=== PATIENT | male | born 1985 | race Hispanic/Latino ===

== ENCOUNTER 2022-06-02 17:51 | Observation (INO) | payer OTHER, SELFPAY ==
--- NOTE | ~2022-06-02 | CT_ITS ---
EXAMINATION: CT abdomen pelvis w con DATE: 06/02/2022 19:42 INDICATION: Right lower quadrant abdominal pain. TECHNIQUE: Computed tomography (CT) of the abdomen and pelvis was performed with 100 mL Omnipaque-350 intravenous contrast. Automated exposure control and iterative reconstruction technique were employe d. The dose-length product was 388.30 mGy-cm. COMPARISON: None FINDINGS: Lung bases are clear. Heart size is normal. No pericardial or pleural effusion. Focal hepatic steatos is along the ligamentum teres. Gallbladder, spleen, pancreas, bilateral adrenal glands and kidneys ar e normal. There is inflammatory stranding surrounding the dilated fluid-filled appendix which measure s up to 11 mm diameter which is consistent with acute appendicitis. No abscess or free intraperitonea l gas or fluid. Bowels are otherwise unremarkable. Bladder is normal. No pathologically enlarged abdo myrna or pelvic lymphadenopathy. 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 IMPRESSION: 1. Acute appendicitis. Reviewed, dictated and finalized at location A. E WELL OPERATOR IMPRESSION: 1. Acute appendicitis.
[2022-06-02 17:55] VITALS: BP 137/97; PULSE 89; RESP 18; TEMP 36.9; O2SAT 100
[2022-06-02 19:16] LABS: Basophils Absolute Auto 0.1 K/mm3 (0.0-0.1); Basophils Percent Auto 0.4 % (0.2-1.2); Hematocrit 44.9 % (42.0-52.0); Hemoglobin 15.4 g/dL (14.0-18.0); Immature Granulocyte Absolute 0.06 K/mm3 (0.00-0.031); Immature Granulocyte Percent A 0.5 % (0-0.5); Lymphocytes Absolute Auto 0.61 K/mm3 (0.9-3.2); Lymphocytes Percent Auto 4.6 % (18.3-44.2); Mean Corpuscular HGB Conc 34.3 g/dl (32-36); Mean Corpuscular Volume 84.6 fl (80-100); Mean Platelet Volume 11.3 fl (7.4-10.4); Monocytes Absolute Auto 0.5 K/mm3 (0.1-0.6); Monocytes Percent Auto 3.5 % (2.6-8.5); Neutrophils Absolute Auto 12.1 K/mm3 (1.3-6.7); Platelet Count Result 244 k/mm3 (150-375); Red Blood Count 5.31 M/mm3 (4.6-6.20); Red Cell Distribution Width 13.2 % (11.5-14.5); White Blood Count 13.3 K/mm3 (4.5-10.0)
[2022-06-02 19:17] LABS: Appearance Urine Clear (Clear); Bilirubin Urine Negative (Negative); Blood Urine Negative (Negative); Color Urine Yellow (Yellow); Glucose Urine UA Negative (Negative); Ketones Urine 3+ mg/dL (Negative); Leukocyte Esterase Ur Negative LEU/UL (Negative); Nitrate Urine Negative (Negative); Protein Urine 1+ mg/dL (Negative); Specific Grav Ur 1.015 (1.001-1.035); pH Urine >=9.0 (5.0-9.0)
[2022-06-02 19:22] LABS: Mucus Urine Rare /lpf; WBC Urine 0-3 /hpf
[2022-06-02 19:26] LABS: Anion Gap 10 mmol/L (8-16); Blood Urea Nitrogen 14 mg/dL (9-20); Carbon Dioxide 27 mmol/L (22-30); Chloride 99 mmol/L (98-107); Estimated Glomerular Filt Rate > 60; Glucose 140 mg/dL (65-110); Potassium 3.6 mmol/L (3.4-5.0); Sodium 136 mmol/L (137-145)
[2022-06-02 19:27] LABS: Alanine Aminotransferase 37 U/L (6-50); Albumin Level 5.2 g/dL (3.5-5.1); Alkaline Phosphatase 114 U/L (38-126); Aspartate Amino Transferase 40 U/L (17-59); Bilirubin,Total 0.9 mg/dL (0.2-1.3); Calcium 9.6 mg/dL (8.4-10.2); Lipase 458 U/L (23-300)
[2022-06-02 19:34] LABS: Add Urine Microscopic? YES
[2022-06-02 19:40] VITALS: BP 139/79; PULSE 90; RESP 18; TEMP 36.6; O2SAT 99
--- NOTE | 2022-06-02 19:40 | PC.NURSE ---
First encounter w/ pt. Pt resting comfortably in bed, NAD, updated pt on plan of care. No question at this time. Pt going to CT now.
[2022-06-02] MEDS: SODIUM CHLORIDE 0.9% IV 1,000 ML 999 ML IV CONT (19:47)
[2022-06-02] MEDS: ONDANSETRON INJ 4 MG/2 ML VIAL IV PUSH (19:47)
[2022-06-02] MEDS: KETOROLAC 30 MG/ML VIAL (*BKC) IV PUSH (19:47)
--- NOTE | 2022-06-02 19:48 | ED.ABDPAIN ---
HPI - Abdominal Pain General Chief Complaint: Abdominal Pain Stated Complaint: abdominal pain Time Seen by Provider: 06/02/22 18:25 Source: RN notes reviewed History of Present Illness HPI narrative: Patient presents emergency department from home for abdominal pain. Patient states that pain began this morning is located right lower quadrant. States the pain is described as sharp and stabbing and does not radiate. The pain is worse with movement. Associate with nausea and vomiting. He denies any fevers or diarrhea. States he has not taken anything for the pain. Patient does not speak Prydeinig and iPad director trade was used Related Data Home Medications Medication Instructions Recorded Confirmed No Home Medications 06/02/22 06/02/22 Allergies Allergy/AdvReac Type Severity Reaction Status Date / Time No Known Allergies Allergy Verified 06/02/22 18:52 Review of Systems Review of Systems: Gen.: Denies fevers or chills ENT: Denies congestion Respiratory: Denies shortness of breath or cough CV: Denies chest pain or palpitations GI: See HPI Musculoskeletal: Denies back pain or muscle pain Neuro: Denies numbness, tingling, weakness or focal weakness Skin: Denies rash Except as documented, all other systems reviewed and negative [facility] Past Medical History Medical History (Updated 06/02/22 @ 20:01 by Nando Wade DO) No significant past medical history Social History Social History (Updated 06/02/22 @ 19:49 by Nando Wade DO) Smoking status: Never smoker Exam Narrative: APPEARANCE: No acute distress, nontoxic, resting in bed HEENT: Normocephalic, atraumatic, RESPIRATORY: No respiratory distress, clear to auscultation bilaterally with no rhonchi wheezing or rales CARDIOVASCULAR: RRR s murmur ABDOMINAL: Soft nondistended tender to palpation in the right lower quadrant no tenderness in the right upper quadrant, left upper quadrant left lower quadrant no rebound or guarding MUSCULOSKELETAl: Moves all extremities. No clubbing, cyanosis or edema. NEURO: Awake and alert. Following commands, speech normal, no focal deficits SKIN:: Warm, dry. Normal Color PSYCHIATRIC: Normal affect/mood Course Course Emergency Course: Called and discussed with Dr. Brady for general surgery agrees with admission to his service was Zosyn started and plan for OR in a.m. Discussed with patient and family results of workup and diagnosis. Discussed need for admission. Patient and family understand and agree to current treatment plan Vital Signs Vital signs: Vital Signs Temperature 98.4 F 06/02/22 17:55 Pulse Rate 89 06/02/22 17:55 Respiratory Rate 18 06/02/22 17:55 Blood Pressure 137/97 H 06/02/22 17:55 Pulse Oximetry 100 06/02/22 17:55 Oxygen Delivery Room Air 06/02/22 17:55 Temperature 98 F 06/02/22 19:40 Pulse Rate 90 06/02/22 19:40 Respiratory Rate 18 06/02/22 19:40 Blood Pressure 139/79 06/02/22 19:40 Pulse Oximetry 99 06/02/22 19:40 Oxygen Delivery Room Air 06/02/22 17:55 MDM - Abdominal Pain Differential Diagnosis Differential diagnosis: Likely acute appendicitis, calculus of kidney, constipation, diverticulitis, gastroenteritis and pancreatitis Lab Data 06/02/22 19:04 06/02/22 19:04 Labs: Lab Results 06/02/22 06/02/22 06/02/22 Range/Units 19:04 19:04 19:05 WBC 13.3 H (4.5-10.0) K/mm3 RBC 5.31 (4.6-6.20) M/mm3 Hgb 15.4 (14.0-18.0) g/dL Hct 44.9 (42.0-52.0) % MCV 84.6 (80-100) fl MCH 29.0 (26-34) pg MCHC 34.3 (32-36) g/dl RDW 13.2 (11.5-14.5) % Plt Count 244 (150-375) k/mm3 MPV 11.3 H (7.4-10.4) fl Immature Gran % (Auto) 0.5 (0-0.5) % Neut % (Auto) 91.0 H (45.5-73.1) % Lymph % (Auto) 4.6 L (18.3-44.2) % [place] % (Auto) 3.5 (2.6-8.5) % Eos % (Auto) 0.0 (0-4.4) % Baso % (Auto) 0.4 (0.2-1.2) % Lymph # (Auto) 0.61 L (0.9-3.2) K/mm3 [place]
[2022-06-02 20:54] LABS: Influenza A QL RT-PCR Negative (Negative); Influenza B QL RT-PCR Negative (Negative); SARS-CoV-2 RNA PCR Negative
[2022-06-02 21:21] VITALS: BP 141/69; PULSE 77; RESP 18; TEMP 36.6; O2SAT 99
[2022-06-02 22:55] VITALS: BP 131/79; PULSE 80; RESP 18; TEMP 37.2; O2SAT 99
[2022-06-02 23:01] VITALS: BP 131/79; PULSE 80; TEMP 37.2
[2022-06-02 23:34] VITALS: BP 136/76; PULSE 90; RESP 20; TEMP 37.3; O2SAT 100
--- NOTE | 2022-06-02 23:45 | ADMGEN ---
This patient, Juan C Roger, was admitted to 2 Medical Room 240-. Patient/family oriented to hospital policies and general routines including ID bracelet, bed and alarms, visiting hours, pain management, procedures, bathroom and other care routines, personal items, smoking policy, room service/diet, and visiting hours. Information on how to activate the Rapid Response Team has been discussed. Patient/Family are encouraged to report perceived risks to care and to ask questions if they do not understand what they are told or what they should do.
[2022-06-03] VITALS (13 sets, daily range): BP systolic 110–149; BP diastolic 69–91; PULSE 76–95; RESP 14–25; TEMP 36.4–36.9; O2SAT 91–100
[2022-06-03] MEDS: SODIUM CHLORIDE 0.9% IV 1,000 ML 125 ML IV CONT (01:43)
[2022-06-03] MEDS: MORPHINE SULFATE (*CRX) 4 MG/ML INJ IV PUSH (01:44)
[2022-06-03 05:40] LABS: Alanine Aminotransferase 30 U/L (6-50); Albumin Level 4.4 g/dL (3.5-5.1); Alkaline Phosphatase 79 U/L (38-126); Anion Gap 7 mmol/L (8-16); Aspartate Amino Transferase 32 U/L (17-59); Basophils Percent Auto 0.3 % (0.2-1.2); Blood Urea Nitrogen 13 mg/dL (9-20); Calcium 8.5 mg/dL (8.4-10.2); Carbon Dioxide 27 mmol/L (22-30); Chloride 101 mmol/L (98-107); Eosinophils Absolute Auto 0.1 K/mm3 (0-0.3); Eosinophils Percent Auto 0.4 % (0-4.4); Estimated CRCL calculation 83 ml/min; Estimated Glomerular Filt Rate > 60; Glucose 93 mg/dL (65-110); Hematocrit 41.4 % (42.0-52.0); Hemoglobin 13.7 g/dL (14.0-18.0); Immature Granulocyte Absolute 0.05 K/mm3 (0.00-0.031); Immature Granulocyte Percent A 0.4 % (0-0.5); Lymphocytes Absolute Auto 2.32 K/mm3 (0.9-3.2); Lymphocytes Percent Auto 19.1 % (18.3-44.2); Mean Corpuscular HGB Conc 33.1 g/dl (32-36); Mean Corpuscular Hemoglobin 29.1 pg (26-34); Mean Corpuscular Volume 87.9 fl (80-100); Mean Platelet Volume 11.6 fl (7.4-10.4); Monocytes Percent Auto 7.9 % (2.6-8.5); Neutrophils Absolute Auto 8.7 K/mm3 (1.3-6.7); Neutrophils Percent Auto 71.9 % (45.5-73.1); Platelet Count Result 205 k/mm3 (150-375); Potassium 3.6 mmol/L (3.4-5.0); Red Blood Count 4.71 M/mm3 (4.6-6.20); Red Cell Distribution Width 13.5 % (11.5-14.5); Sodium 135 mmol/L (137-145); White Blood Count 12.1 K/mm3 (4.5-10.0)
--- NOTE | 2022-06-03 09:55 | PM.IMHP ---
H&P: HPI History of Present Illness Date/Time: 06/03/22 09:55 Chief Complaint: acute appendicitis Narrative: Pt is a 36 y/o M presenting to ED c/o RLQ pain since yesterday am. Pt reports pain started acutely and is constant, sharp. Pt reports pain is localized to RLQ. Pt reports associated anorexia, nausea. Pt denies previous episodes, denies f/c. Review of Systems Constitutional: Constitutional: Reports as per HPI, Reports anorexia, Denies chills, Denies fatigue, Denies fever(s), Denies lethargy, Reports poor appetite, Denies weakness, Denies weight gain and Denies weight loss Eyes: Eyes: Reports no additional eye complaints ENT: Reports system reviewed and no additional complaints, except as documented Cardiovascular: Cardiovascular: Reports no additional cardiovascular complaints Respiratory: Respiratory: Reports no additional respiratory complaints Gastrointestinal: Gastrointestinal: Reports as per HPI, Reports abdominal pain, Denies bloating, Reports GI cramping, Denies diarrhea, Denies loose stools, Reports nausea and Denies vomiting Genitourinary: Genitourinary: Reports no additional male genitourinary complaints Musculoskeletal: Musculoskeletal: Reports no additional musculoskeletal complaints Integumentary/Breasts: Skin/Breast: Reports system reviewed and no additional complaints, except as docu Psychiatric: Psychiatric: Reports no additional psychiatric complaints Endocrine: Endocrine: Reports no additional endocrine complaints Hematologic/Lymphatic: Hematologic/Lymphatic: Reports no additional hematologic/lymphatic complaints Allergic/Immunologic: Allergic/Immunologic: Reports no additional allergic/immunologic complaints PMFSH Past Medical History Medical History No significant past medical history Social History Social History Smoking status: Never smoker Alcohol intake: current Drinks per week: 1 Substance use: never Lack of Transportation: No Lack of Food: Never True Current Housing: I Have Housing Concerned About Future Housing: No Difficulty Paying Gas/Electric Bills: No Difficulty Paying for Meds: YES Currently Unemployed: YES Education: Grade School Difficulty w/ Childcare or Family Care: No Spiritual care concerns: No Comments no past surgical history FH - no CRC, IBD Meds Home Medications and Allergies Home Medications Medication Instructions Recorded Confirmed Type No Home Medications 06/02/22 06/02/22 History Allergies Allergy/AdvReac Type Severity Reaction Status Date / Time No Known Allergies Allergy Verified 06/02/22 18:52 Vital Signs Vital Signs - 24 hr 06/02/22 17:55 06/02/22 19:40 06/02/22 21:21 Temperature 36.9 C 36.6 C 36.6 C Pulse Rate 89 90 77 Respiratory Rate 18 18 18 Blood Pressure 137/97 H 139/79 141/69 H Pulse Oximetry 100 99 99 Oxygen Delivery Room Air 06/02/22 22:55 06/02/22 23:34 06/03/22 04:10 Temperature 37.2 C 37.3 C 36.9 C Pulse Rate 80 90 80 Respiratory Rate 18 20 20 Blood Pressure 131/79 136/76 110/69 Pulse Oximetry 99 100 100 Oxygen Delivery 06/03/22 08:00 06/02/22 23:01 Temperature 37.2 C Pulse Rate 80 Respiratory Rate Blood Pressure 131/79 Pulse Oximetry Oxygen Delivery Room Air Exam Const: General: cooperative, healthy appearing, comfortable, alert, awake, Physically active and acute distress mild Nutritional Appearance: average body habitus Orientation/consciousness: patient oriented x3 HENMT: Head: normal to inspection, No palpable skull fracture present, normocephalic and atraumatic Eyes: General: appearance normal, both eyes and all related structures Neck: Neck: normal visual inspection, full ROM and no lymphadenopathy Resp: Auscultation: clear to auscultation bilaterally Cardio: Rate: regular rate Rhythm: regular rhythm GI: Inspection: nor
--- NOTE | 2022-06-03 10:01 | WPDHPUPDATE1 ---
History and Physical Update Update Date/Time: 06/03/22 10:01 History and Physical has been reviewed, including an updated exam of the patient. There are NO changes in the patient's condition. Risks, benefits, and alternatives have been discussed and questions answered. Patient agrees to proceed with procedure.
--- NOTE | 2022-06-03 10:06 | WPDANESEPPF ---
Anes - Initial Pre Proc Eval Procedure: Operation Date: 06/03/22 11:30 Proposed Procedures p Laparoscopic Appendectomy - Lubna Brady MD Date/Time: 06/03/22 10:06 Surgeon: Lubna Brady MD Pre Op Diagnosis: Appendicitis Patient Data Age: 36 Gender: M Height: 1.63 m Weight: 75.4 kg Last Vital Signs Temp 36.9 C 06/03/22 04:10 Pulse 80 06/03/22 04:10 Resp 20 06/03/22 04:10 BP 110/69 06/03/22 04:10 Pulse Ox 100 06/03/22 04:10 O2 Del Method Room Air 06/03/22 08:00 Allergies Allergy/AdvReac Type Severity Reaction Status Date / Time No Known Allergies Allergy Verified 06/02/22 18:52 Home Medications Medication Instructions Recorded Confirmed Type No Home Medications 06/02/22 06/02/22 History Laboratory Tests 06/02/22 06/02/22 06/02/22 19:04 19:04 19:05 WBC 13.3 K/mm3 H K/mm3 (4.5-10.0) RBC 5.31 M/mm3 M/mm3 (4.6-6.20) Hgb 15.4 g/dL g/dL (14.0-18.0) Hct 44.9 % % (42.0-52.0) MCV 84.6 fl fl (80-100) MCH 29.0 pg pg (26-34) MCHC 34.3 g/dl g/dl (32-36) RDW 13.2 % % (11.5-14.5) Plt Count 244 k/mm3 k/mm3 (150-375) MPV 11.3 fl H fl (7.4-10.4) Immature Gran % (Auto) 0.5 % % (0-0.5) Neut % (Auto) 91.0 % H % (45.5-73.1) Lymph % (Auto) 4.6 % L % (18.3-44.2) [place] % (Auto) 3.5 % % (2.6-8.5) Eos % (Auto) 0.0 % % (0-4.4) Baso % (Auto) 0.4 % % (0.2-1.2) Lymph # (Auto) 0.61 K/mm3 L K/mm3 (0.9-3.2) [place] # (Auto) 0.5 K/mm3 K/mm3 (0.1-0.6) Eos # (Auto) 0.0 K/mm3 K/mm3 (0-0.3) Baso # (Auto) 0.1 K/mm3 K/mm3 (0.0-0.1) Abs Immat Gran (auto) 0.06 K/mm3 H K/mm3 (0.00-0.031) Absolute Neuts (auto) 12.1 K/mm3 H K/mm3 (1.3-6.7) Absolute Nucleated RBC 0.0 K/mm3 K/mm3 (0.0-0.012) Nucleated RBC % 0.0 % % (0.0-0.2) Sodium 136 mmol/L L mmol/L (137-145) Potassium 3.6 mmol/L mmol/L (3.4-5.0) Chloride 99 mmol/L mmol/L (98-107) Carbon Dioxide 27 mmol/L mmol/L (22-30) Anion Gap 10 mmol/L mmol/L (8-16) BUN 14 mg/dL mg/dL (9-20) Creatinine 0.70 mg/dL mg/dL (0.7-1.3) Estim Creat Clear Calc Not Reportable Estimated GFR > 60 (59 - ) Glucose 140 mg/dL H mg/dL (65-110) Calcium 9.6 mg/dL mg/dL (8.4-10.2) Total Bilirubin 0.9 mg/dL mg/dL (0.2-1.3) AST 40 U/L U/L (17-59) ALT 37 U/L U/L (6-50) Alkaline Phosphatase 114 U/L U/L (38-126) Total Protein 9.0 g/dL H g/dL (6.3-8.2) Albumin 5.2 g/dL H g/dL (3.5-5.1) Lipase 458 U/L H U/L (23-300) Urine Color Yellow (Yellow) Urine Appearance Clear (Clear) Urine pH >=9.0 H (5.0-9.0) Ur Specific [place] 1.015 (1.001-1.035) Urine Protein 1+ mg/dL H mg/dL (Negative) Urine Glucose (UA) Negative mg/dL mg/dL (Negative) Urine Ketones 3+ mg/dL H mg/dL (Negative) Ur Blood (Man) Negative (Negative) Urine Nitrate Negative (Negative) Urine Bilirubin Negative (Negative) Urine Urobilinogen 1.0 mg/dL mg/dL (<2.0) Leukocyte Esterase Rfl Negative FATMATA/UL FATMATA/UL (Negative) Urine RBC 3-5 /hpf H /hpf (0-2) Urine WBC 0-3 /hpf /hpf Urine Mucus Rare /lpf /lpf Influenza A (RT-PCR) Influenza B (RT-PCR) SARS-CoV-2 RNA (RT-PCR) 06/02/22 06/03/22 06/03/22 20:12 04:43 04:43 WBC 12.1 K/mm3 H K/mm3 (4.5-10.0) RBC 4.71 M/mm3 M/mm3 (4.6-6.20) Hgb 13.7 g/dL L g/dL (14.0-18.0) Hct 41.4 % L % (42.0-52.0) MCV 87.9 fl fl (80-100) MCH 29.1
[2022-06-03] MEDS: LACTATED RINGERS 1,000 ML 30 ML IV CONT ×2 (10:20→12:49)
--- NOTE | 2022-06-03 10:53 | SUR.PREOP ---
1030-DR. MTASON AND OR [employer] WAITING TO TAKE PT TO OR ON ARRIVAL TO PREOP. [place]OV[place] SPEAKING STRAT[employer] PASTING INSPECTOR CONNECTED AND PT AND DISCUSSION WITH DR. MATSON COMPLETED PER SERVICE. DR. MATSON REQUESTS HAIR REMOVAL BE DEFERRED TO OR AND [employer] IN AGREEMENT.
[2022-06-03] MEDS: BUPIVACAINE/EPINEPHRINE 0.5% 30 ML VIAL INFILTRATE (10:54)
--- NOTE | 2022-06-03 11:20 | P.OP_ITS ---
Procedure Note - Detailed Date of Procedure 06/03/22 Pre-op Diagnosis acute appendicitis Post-op Diagnosis Same Procedure Performed laparoscopic appendectomy Surgeon Lubna Brady MD Anesthesia General Indications 36 y/o M presenting to ED c acute appendicitis Findings acute appendicitis no evidence of perforation Description of Procedure The patient was taken to the operating room and placed in the supine position. After adequate induction of general anesthesia, the patient was prepped and draped in the normal sterile fashion. A time-out was then done to verify the patient's identity, as well as the procedure being performed. I began by making a 5 mm incision in the infraumbilical region, through this a Veress needle was placed in the peritoneal cavity. CO2 gas was then insufflated and after debra quate pneumoperitoneum was achieved the Veress needle was removed. Then placed a 5 mm Optiview trocar under direct visualization into the peritoneal cavity. I then insufflated through this trocar site and the endoscope was placed into the trocar. Under direct visualization, placed 2 further 5 mm suprapubic port as well as an additional 12 mm port in the left lower abdomen. At this point I identified the cecum and retracted the cecum both medially and superiorly allowing me to expose the appendix. The appendix was noted to be very dilated and inflamed especially towards the tip. The appendix was noted to be very adherent to the right lateral sidewall as well as the ileum. I was able to bluntly dissect the appendix from these adhesions. I then was able to locate the base of the appendix with the cecum. I created a window with the [place] dissector between the appendix itself and the mesoappendix. I then transected the mesoappendix with a white vascular staple load. The Endo-ERUM was then reloaded with a blue staple load and I transected the base of the appendix. Once the specimen was completely detached, an endo-pouch was placed into the 12 mm port site and the specimen was removed through the endo-pouch. The appendiceal specimen will be sent to pathology for further review. I then copiously irrigated the right lower quadrant. Hemostasis was noted at both staple lines no other pathology was seen in this area. I then moved the camera to the suprapubic port to check our its port of entry. No iatrogenic injury or other pathology was noted in the upper abdomen. I then closed the 12 mm port site with a Richardson code and 0 Vicryl suture under direct visualization. At this point, the abdomen was desufflated and all ports were removed. All port sites were closed with 4 Monocryl subcuticular suture. Dermabond was placed on all wounds. The patient tolerated the procedure well and was extubated in the operating room postop. He will be sent to the recovery room in stable condition. Estimated Blood Loss 10 Drains No Packing No Pathology Yes Complications No immediate complications Condition Stable Disposition PACU [facility] Billing Surgery - Charge Forward: Surgery Billing
[2022-06-03] MEDS: fentaNYL CITRATE INJ (*CRX) 100 MCG/2 ML VIAL 25 MCG IV PUSH ×4 (11:36→12:05)
[2022-06-03] MEDS: HYDROcodone/acetaminophen (*CRX) 5-325 MG TABLET 1 TAB PO (13:28)
--- NOTE | 2022-06-06 14:32 | PM.DS ---
DS: Admitting Diagnosis Discharge Date 06/03/22 Admitting Diagnosis Acute appendicitis DS: Discharge Diagnosis Discharge Diagnosis (1) Acute appendicitis: Code(s): K35.80 - Unspecified acute appendicitis Status: Acute Assessment and Plan: status post laparoscopic appendectomy, doing well, continue routine postoperative care, home with p.o. analgesia Colace, follow-up 2 weeks DS: Summary Hospital Course Reason for hospitalization: Acute appendicitis Hospital Course: The the patient is a 36-year-old male presenting to the emergency department complaining of lower abdominal pain. Workup in the emergency department, including CT scan, was significant for acute appendicitis. The patient was subsequently admitted to the surgical service and started on antibiotics. Upon surgical evaluation, was decided the patient need emergent appendectomy. Patient was taken to the operating room and laparoscopic appendectomy was performed, please see full operative report for details of procedure. Postoperatively the patient did well was transferred to surgical floor. He was able to tolerate a diet and was up and ambulating without issue. His pain was well controlled with p.o. analgesia. He will now be discharged home with p.o. analgesia and Colace. He will follow up with me in 2 weeks. Status at Discharge Functional status at discharge: independent ambulation Overall status at discharge: patient is progressing back to baseline Time Spent with Patient Time attestation: Total time spent providing and/or coordinating discharge services: Time spent: Less than 30 minutes Exam Const: General: cooperative, comfortable and no acute distress Resp: Auscultation: clear to auscultation bilaterally Cardio: Rate: regular rate Rhythm: regular rhythm GI: Inspection: normal to inspection, distended and incision GI Palp: Yes abdominal tenderness, Yes Soft to palpation, Yes Tenderness to palpation present (GI), No Guarding due to palpation present (GI) and No Rigid due to palpation DS: Data Data Completed and Pending Completed studies during hospitalization: Pending at discharge 06/03/22 10:53 Surgical [PTH] Routine Discharge Plan Discharge Attending physician on discharge: Lubna Brady Consulting providers: Diony Cherry ; Gideon Perez Discharging Clinician: Lubna Brady Anticipated Discharge Date/Time: 06/03/22 15:00 Patient Disposition: Home, Self-Care Activity: other - see discharge instructions Diet: other - see discharge instructions Wound Care Instructions: other - see discharge instructions Discharge Instructions: DISCHARGE INSTRUCTION SHEET FOR HERNIA, GALLBLADDER AND APPENDIX SURGERIES DR. BRADY PATIENT TO TAKE HOME 1. May shower in 24 hours, no soaking in bath x 2weeks. 2. Call office for: Wound increasingly painful or bleeding Vomiting Fever of greater than 101 degrees 3. If no bowel movement for three days, take 1 oz. (30 ml) Milk of Magnesia or MiraLax 17g 1 to 2 times daily. 4. No heavy lifting > 10-15 pounds x 6 weeks for hernia repairs and 2 weeks for laparoscopic cholecystectomy or appendectomy. 5. No driving for 3 days or while taking narcotic pain medications. 6. Ice to surgical site for 48 hours (30 min on, then 30 min off). 7. Up walking 10-30 minutes three times per day. 8. Resume previous home medications. 9. Follow-up 10-14 days in office for wound check or as previously scheduled. ([phone]) 10. Oral pain medications prescription to be sent to pharmacy. Take Tylenol 500mg every 6 hours and Ibuprofen 600mg every 6 hours for the first 2 days, then as needed. 11. NUTRITION: Start out by drinking fluids and increase your diet as tolerated. If you experience nausea, try dry toast, crackers, and 7-UP. If nausea or vomiting persists, contact your surgeon?s office. 12. Gallb
== END 2022-06-03 14:42 | disposition home or self-care (01) ==
LOC: ANHED 20:01 → ANH2MED 22:41
PROVIDERS: Admitting Provider Surgery; Emergency Provider Emergency Medicine; Visit Provider Surgery
PROC: 0DTJ4ZZ Resection of Appendix, Percutaneous Endoscopic Approach (ICD-10-PCS; CPT 44970; principal; 2022-06-03 11:30)
DX: K35.80 Unspecified acute appendicitis (principal); R63.0 Anorexia; Z68.28 Body mass index [BMI] 28.0-28.9, adult; F10.90 Alcohol use, unspecified, uncomplicated; Z20.822 Contact with and (suspected) exposure to COVID-19
CPT/HCPCS: 44970; 36415; 74177; 80053; 81001; 83690; 85025; 87636; 88304; 96365; 96366; 96375; 99285; A9270; G0378; G0379; J1885; J2250; J2270; J2405; J2543; J3010; J7030; J7120; Q9967